=== PATIENT | female | born 1980 | race Caucasian/White ===

== ENCOUNTER 2024-05-22 05:12 | Day surgery (SDC) | payer OTHER ==
[2024-05-21 15:26] VITALS: BMI 29.2
[2024-05-22] MEDS ORDERED: MIDAZOLAM HCL 2 MG/2 ML SINGLE DOSE VIAL ONE ×2 (13:40→14:15)
[2024-05-22] MEDS ORDERED: PROPOFOL 20 ML ONE ×2 (13:40→14:22)
[2024-05-22] MEDS: ceFAZolin SODIUM 1 GM VIAL IVPB ONE (14:10)
[2024-05-22] MEDS: FERRIC SUBSULFATE 500 ML BOTTLE TP ONE (14:32)
[2024-05-22] MEDS ORDERED: IBUPROFEN 800 MG/8 ML IJ IVPB PRN (14:59)
[2024-05-22] MEDS ORDERED: ACETAMINOPHEN 325 MG TABLET (FP) PO PRN (15:00)
[2024-05-22] MEDS ORDERED: LACTATED RINGERS SOLUTION 1,000 ML IV SCH ×2 (15:00→15:15)
[2024-05-22] MEDS ORDERED: IBUPROFEN 600 MG TABLET (FP) PO PRN (15:00)
[2024-05-22] MEDS ORDERED: oxyCODONE HCL 5 MG TABLET PO PRN (15:01)
[2024-05-22] MEDS ORDERED: ONDANSETRON 4 MG/2 ML VIAL IVPUSH PRN (15:01)
[2024-05-22] MEDS: ACETAMINOPHEN 1000 MG/100 ML BAG IVPB ONE (15:30)
[2024-05-22] MEDS ORDERED: ACETAMINOPHEN INJECTION 100 ML IVPB ONE (15:38)
[2024-05-22 15:39] VITALS: TEMP 97.8
[2024-05-22 18:12] VITALS: RESP 20
[2024-05-22 18:29] VITALS: BP 122/54; PULSE 70
[2024-05-23] MEDS ORDERED: oxyCODONE HCL 5 MG TABLET PO PRN ×2 (03:00)
== END 2024-05-22 16:50 | disposition home or self-care (01) ==
LOC: JASU-SURG 05:12
PROVIDERS: ATTEND Obstetrics & Gynecology
PROC: 0UBC7ZX Excision of Cervix, Via Natural or Artificial Opening, Diagnostic (ICD-10-PCS; principal; 2024-05-22 13:30)
DX: R87.613 High grade squamous intraepithelial lesion on cytologic smear of cervix (HGSIL) (principal)
CPT/HCPCS: 88307-TC; 88341-TC; 88342-TC; 94760; J0131